=== PATIENT | female | born 1940 | race Caucasian/White ===

== ENCOUNTER 2020-06-02 15:02 | Inpatient (IN) ==
[2020-06-02 17:31] LABS: ABS Monocytes 0.3 10^3/ul (0-0.8); ABS Neutrophils 4.4 10^3/ul (1.5-7.7); Eosinophil % 0.5 %; Hematocrit 30 % (35-47); Hemoglobin 10.1 g/dL (12.0-16.0); Lymphocyte % 17.6 %; Mean Corpuscular HGB Conc 34 g/dL (31-36); Mean Corpuscular Hemoglobin 31 pg (27-31); Mean Corpuscular Volume 91 fL (80-97); Mean Platelet Volume 8.1 fL (7.4-10.4); Platelet Count 252 10^3/uL (150-450); Red Blood Count 3.28 10^6 /uL (3.70-4.87); Red Cell Distribution Width 14 % (10-15); White Blood Count 5.8 10^3/uL (3.5-10.8)
[2020-06-02 17:40] LABS: INR 1.14 (0.82-1.09)
[2020-06-02 17:48] LABS: ALT 31 U/L (7-52); AST 36 U/L (13-39); Albumin 3.7 g/dL (3.2-5.2); Albumin/Globulin Ratio 1.2 (1-3); Alkaline Phosphatase 62 U/L (34-104); Anion Gap 11 mmol/L (2-11); BUN/Creatinine Ratio 17.4 (8-20); Blood Urea Nitrogen 16 mg/dL (6-24); CO2 Carbon Dioxide 20 mmol/L (22-32); Calcium 9.2 mg/dL (8.6-10.3); Chloride 104 mmol/L (101-111); EGFR African American 71.1 (>60); EGFR Non-African American 58.7 (>60); Globulin 3.2 g/dL (2-4); Glucose 178 mg/dL (70-100); Potassium 3.7 mmol/L (3.5-5.0); Sodium 135 mmol/L (135-145); Total Protein 6.9 g/dL (6.4-8.9)
[2020-06-02] MEDS ORDERED: NS 0.9% 1000 ml BAG 1,000 ML IV ONE (17:52)
[2020-06-02 17:53] LABS: Magnesium 0.9 mg/dL (1.9-2.7); Troponin I 0.32 ng/mL (<0.03)
[2020-06-02] MEDS ORDERED: Magnesium Sulf 4 GM/100 ML IV 4,000 MG/100 ML BAG IVPB ONE (17:55)
[2020-06-02] MEDS ORDERED: Furosemide 40 mg/4 ml IV VIAL IV ONE (18:00)
[2020-06-02] MEDS ORDERED: Iodixanol (CONTRAST) 320 MG/ML 100 ML SDV IV ONE (18:02)
[2020-06-02 18:37] LABS: TSH Ultra Thyroid Stim Horm 1.59 mcIU/mL (0.34-5.60)
[2020-06-02] MEDS ORDERED: Dextrose 50% Syringe 50 ml 25 GM/50 ML SYRINGE IV PUSH PRN (19:30)
[2020-06-02 19:52] LABS: C Reactive Protein 7.75 mg/L (<8.01); Cholesterol 139 mg/dL; LDL Cholesterol 68 mg/dL; Triglycerides 115 mg/dL
[2020-06-02 20:39] LABS: % Iron Saturation 10 % (15-55); Iron 34 ug/dL (50-212); Total Iron Binding Capacity 340 mcg/dL (250-450); Transferrin 243 mg/dL (203-362); Unsaturated Iron Binding < 325 ug/dL
[2020-06-02 21:01] LABS: Ferritin 62.8 ng/mL (11-307)
[2020-06-02 21:04] LABS: Folate > 20.00 ng/mL (>3.99)
[2020-06-02 21:05] LABS: Vitamin B12 332 pg/mL (180-914)
[2020-06-02] MEDS: Heparin 5000 UNITS/ML 1 mL VIAL SUBCUT SCH (22:05)
[2020-06-03 02:47] LABS: Troponin I 0.41 ng/mL (<0.03)
[2020-06-03 05:32] LABS: ABS Basophils 0.1 10^3/ul (0-0.2); ABS Eosinophils 0.1 10^3/ul (0-0.6); ABS Lymphocytes 1.1 10^3/ul (1.0-4.8); ABS Monocytes 0.5 10^3/ul (0-0.8); ABS Neutrophils 4.4 10^3/ul (1.5-7.7); Hematocrit 30 % (35-47); Hemoglobin 10.2 g/dL (12.0-16.0); Lymphocyte % 18.6 %; Mean Corpuscular HGB Conc 34 g/dL (31-36); Mean Corpuscular Hemoglobin 30 pg (27-31); Mean Corpuscular Volume 90 fL (80-97); Mean Platelet Volume 8.6 fL (7.4-10.4); Nucleated Red Blood Cells % 0.1; Platelet Count 269 10^3/uL (150-450); Red Blood Count 3.36 10^6 /uL (3.70-4.87); Red Cell Distribution Width 14 % (10-15)
[2020-06-03 05:49] LABS: BUN/Creatinine Ratio 16.5 (8-20); Calcium 9.1 mg/dL (8.6-10.3); EGFR Non-African American 59.5 (>60); Magnesium 1.6 mg/dL (1.9-2.7); Potassium 3.1 mmol/L (3.5-5.0)
[2020-06-03] MEDS: Heparin 5000 UNITS/ML 1 mL VIAL SUBCUT SCH (06:24)
[2020-06-03] MEDS ORDERED: Perflutren Lipid Microsphere 3 ML VIAL ONE (07:42)
[2020-06-03] MEDS ORDERED: Potassium Chloride LIQUID 20 MEQ/15 ML LIQUID PO ONE ×2 (07:46)
[2020-06-03] MEDS ORDERED: Magnesium Sulfate 2 gm BAG 2 GM/50 ML BAG IVPB ONE (07:46)
[2020-06-03] MEDS: Enoxaparin 80 MG/0.8 ML SYR SUBCUT SCH ×2 (08:22→20:51)
[2020-06-03] MEDS: Aspirin EC 81 mg TAB.EC (enteric coated) PO SCH (08:24)
[2020-06-03 09:04] LABS: Troponin I 0.36 ng/mL (<0.03)
[2020-06-03 16:33] LABS: BUN/Creatinine Ratio 14.3 (8-20); Calcium 9.5 mg/dL (8.6-10.3); EGFR African American 66.1 (>60); EGFR Non-African American 54.6 (>60); Magnesium 1.9 mg/dL (1.9-2.7); Potassium 3.9 mmol/L (3.5-5.0)
[2020-06-03] MEDS: RIVASTIGMINE 1.5 MG PO SCH (20:52)
[2020-06-04 06:22] LABS: BUN/Creatinine Ratio 13.4 (8-20); Calcium 9.3 mg/dL (8.6-10.3); EGFR African American 66.9 (>60); EGFR Non-African American 55.3 (>60); Magnesium 1.6 mg/dL (1.9-2.7); Potassium 3.6 mmol/L (3.5-5.0)
[2020-06-04] MEDS ORDERED: diPHENhydraMINE 25 mg TAB PO PRN (08:42)
[2020-06-04] MEDS ORDERED: NS 0.9% 1000 ml BAG 1,000 ML IV SCH ×3 (08:45→18:15)
[2020-06-04] MEDS: Enoxaparin 80 MG/0.8 ML SYR SUBCUT SCH (09:23)
[2020-06-04] MEDS: Aspirin EC 81 mg TAB.EC (enteric coated) PO SCH (09:46)
[2020-06-04] MEDS: RIVASTIGMINE 1.5 MG PO SCH ×2 (09:46→20:46)
[2020-06-04] MEDS ORDERED: Iodixanol 320 (CONTRAST) 100 ML SDV ONE (09:57)
[2020-06-04] MEDS ORDERED: Heparin 2 UNITS/ML 1000 mls 2,000 ML IV ONE (09:57)
[2020-06-04] MEDS ORDERED: Lidocaine 1% VIAL 10 MG/ML VIAL ONE (09:57)
[2020-06-04] MEDS ORDERED: fentaNYL 100 mcg/2 ml 50 MCG/ML VIAL ONE (10:09)
[2020-06-04] MEDS ORDERED: nitroGLYCERIN DRIP 25,000 MCG/250 ML BTL ONE (10:09)
[2020-06-04] MEDS ORDERED: Heparin 1,000 UNIT/ML 10 ml (10,000 UNITS) CATHLAB/DIALYSIS ONE (10:09)
[2020-06-04] MEDS ORDERED: VERAPAMIL 2.5 MG/ML 2 ML VIAL ** 5 mg/2 ml ONE (10:09)
[2020-06-04] MEDS ORDERED: Midazolam 5 mg/5 ml VIAL 1 mg/ml 5 ml VIAL (5 mg) ONE (10:09)
[2020-06-04] MEDS ORDERED: diPHENhydraMINE IV 50 MG/ML 1 ml VIAL (BENADRYL) ONE (10:17)
[2020-06-04 19:35] LABS: BUN/Creatinine Ratio 13.3 (8-20); Calcium 9.3 mg/dL (8.6-10.3); EGFR African American 66.1 (>60); EGFR Non-African American 54.6 (>60); Potassium 3.5 mmol/L (3.5-5.0)
[2020-06-05 06:38] LABS: BUN/Creatinine Ratio 14.1 (8-20); Blood Urea Nitrogen 12 mg/dL (6-24); CO2 Carbon Dioxide 28 mmol/L (22-32); Calcium 8.9 mg/dL (8.6-10.3); Chloride 101 mmol/L (101-111); EGFR African American 77.9 (>60); EGFR Non-African American 64.4 (>60); Glucose 120 mg/dL (70-100); Sodium 138 mmol/L (135-145)
[2020-06-05 06:46] LABS: Anion Gap 9 mmol/L (2-11)
[2020-06-05] MEDS: Aspirin EC 81 mg TAB.EC (enteric coated) PO SCH (08:22)
[2020-06-05] MEDS: RIVASTIGMINE 1.5 MG PO SCH (08:23)
[2020-06-05] MEDS ORDERED: Magnesium Sulfate 2 gm BAG 2 GM/50 ML BAG IVPB ONE (11:48)
[2020-06-05 13:56] VITALS: BP 127/108
== END 2020-06-05 13:50 | disposition home or self-care (01) | DRG 280 ==
LOC: ED 15:02 → ICU 19:31 → INTOOBSV 19:31 → ICU 21:30
PROVIDERS: ADMIT Internal Medicine; ATTEND Internal Medicine